=== PATIENT | male | born 1950 | race African-American/Black ===

== ENCOUNTER 2016-11-06 11:46 | Inpatient (IN) | payer OTHER ==
[~2016-11-06] VITALS: Ht 182.9 cm; Wt 97.0 kg
--- NOTE | ~2016-11-06 | OR ---
Unit #: [id number] #: [id number] Patient: KAYDEN ADAME [id number] [address] [address] [id number] MR#: [id number] NAME: KAYDEN ADAME ROOM: [facility] Date of Procedure: 11/06/2016 Admission Date: 11/06/2016 Surgeon: Eduard Velarde M.D. : 1950 Attending Physician: Harleen Winkler M.D. Primary Care Physician: Marce Primary Care Physician PROCEDURE OPERATIVE NOTE PROCEDURE Left intrajugular central line placement with ultrasound guidance. INDICATION FOR PROCEDURE Status post cardiac arrest. COMPLICATIONS None. PREMEDICATION None. DESCRIPTION OF THE PROCEDURE An informed consent was obtained from the patient's family after explaining the benefit and risk of this procedure. The patient was prepped and positioned in a proper way. Then, a clean body drape was applied. Then, a needle was inserted in the left IJ and blood flow was obtained. Then, a guidewire was inserted and the needle was removed. Then, a dilator was used to create a track for the catheter which was inserted over the guidewire and the guidewire was removed. The catheter was sutured in place and flushed appropriately. Stat chest x-ray confirmed placement with no immediate complication. Dictated by... Eduard Velarde M.D. EA/myranda TD: 11/07/2016 06:02 JOB #: [id number] Unit #: [id number] #: [id number] Patient: KAYDEN ADAME PROCEDURE OPERATIVE NOTE Page 1 of 1 X EDUARD ROPER MD PROCEDURE OPERATIVE NOTE
--- NOTE | ~2016-11-06 | CR72 ---
[facility] A Service of [facility] RADIOLOGY TEXT RESULTS PATIENT: KAYDEN ADAME LOCATION: CICCU3 CICCU3-13 : 50 UNIT #: [id number] AGE: [address]: Harleen Winkler MD SEX: M ORDER DR: [id number] [facility] [address] [facility]. [place], [place] [address] [id number] MR#: [id number] Acc #: [id number] NAME: KAYDEN ADAME : 1950 SEX: M STUDY DATE/TIME: 11/06/2016 12:26 UNIT: SLY ROOM: STUDY DESCRIPTION: CR Chest Single View Portable Attending Physician: Alvarez Sosa M.D. Ordering Physician: Alvarez Sosa M.D. Primary Care Physician: No Primary Care Physician MEDICAL IMAGING REPORT This report is preliminary unless electronic signature is present EXAM Chest, portable, 11/06/2016, 1226 hours. CLINICAL HISTORY Endotracheal tube placement. Patient found down today. Full cardiopulmonary arrest today. COMPARISON None. FINDINGS Supine portable chest film demonstrates an endotracheal tube with tip 5.8 cm above the brittny. Cardiac size is within normal limits. Aorta is mildly tortuous. Lung volumes are slightly low with perihilar and basilar vascular crowding. No definite edema, pneumonia, effusion, or pneumothorax. There is artifact from the backboard. IMPRESSION 1. Supine film demonstrates endotracheal tube with tip 5.8 cm above the brittny. 2. Perihilar and basilar vascular crowding without definite pneumonia, edema, effusion, or pneumothorax. Dictated by... Mariia Bauer M.D. THIS IS AN ELECTRONICALLY VERIFIED REPORT Mariia Bauer M.D. at 11/06/2016 5:41 PM NOHEMIM/terry TD: 11/06/2016 14:39 [facility] A Service [facility] RADIOLOGY TEXT RESULTS PATIENT: KAYDEN ADAME LOCATION: CICCUYuridia CICCU3-13 : 50 UNIT #: [id number] AGE: [address]: Harleen Winkler MD SEX: M ORDER DR: JOB #: [id number] MEDICAL IMAGING REPORT Page 1 of 1 COPY
--- NOTE | ~2016-11-06 | EKG ---
PATIENT: KAYDEN ADAME UNIT #: [id number] Ventricular Rate: 89 BPM Atrial Rate: 89 BPM P-R Interval: 204 ms QRS Duration: 152 ms Q-T Interval: 416 ms QTC Calculation(Bezet): 506 ms P Seneca: -83 degrees Calculated R Seneca: -69 degrees Calculated T Seneca: 22 degrees Diagnosis Line: Unusual P axis, possible ectopic atrial rhythm Diagnosis Line: with occasional Premature ventricular complexes Diagnosis Line: and Premature atrial complexes Diagnosis Line: Left axis deviation Diagnosis Line: Non-specific intra-ventricular conduction block Diagnosis Line: Inferior infarct , age undetermined Diagnosis Line: Anterolateral injury pattern Diagnosis Line: ACUTE NE / STEMI Diagnosis Line: Abnormal ECG Diagnosis Line: No previous ECGs available Diagnosis Line: Confirmed by CHRYSTAL AGUILAR MD ([id number]) on 11/08/2016 Diagnosis Line: 8:18:53 AM INTERPRETING MD: LAUREN TALAVERA
--- NOTE | ~2016-11-06 | CR72 ---
[facility] A Service of [facility] RADIOLOGY TEXT RESULTS PATIENT: KAYDEN ADAME LOCATION: [address]10 : [birth year] UNIT #: [id number] AGE: [address]: Nichelle Larson MD SEX: M ORDER DR: [id number] [facility] [address] [place], [place] [address] [id number] I MR#: [id number] #: [id number] NAME: KAYDEN ADAME. : 1950 SEX: M STUDY DATE/TIME: 11/07/2016 4:57 UNIT: [facility] ROOM: [facility] STUDY DESCRIPTION: CR Chest Single View Portable Attending Physician: Nichelle Larson M.D. Ordering Physician: Harleen Winkler M.D. Primary Care Physician: No Primary Care Physician MEDICAL IMAGING REPORT This report is preliminary unless electronic signature is present EXAM AP portable chest 11/07/2016 HISTORY Respiratory failure, shortness breath today, on ventilator. Symptoms began 11/06/2016. History of full cardiopulmonary arrest. COMPARISON AP portable chest 11/06/2016. FINDINGS Transcutaneous pacer pads are present. There are new bilateral lower lobe airspace disease changes thought to represent changes of pneumonia or potentially aspiration. Heart size is within normal limits. No pleural effusion or pneumothorax. IMPRESSION 1. New bilateral lower lobe airspace disease changes since 11/06/2016, worrisome for developing pneumonia or aspiration. 2. ET tube and left IJ central line appear stable. 3. No visible pneumothorax. Dictated by... Gayathri Owens M.D. THIS IS AN ELECTRONICALLY VERIFIED REPORT Gayathri Owens M.D. at 11/10/2016 8:42 AM [facility]/yara TD: 11/07/2016 08:05 JOB #: [id number] [facility] A Service of [facility] RADIOLOGY TEXT RESULTS PATIENT: KAYDEN ADAME LOCATION: [facility]-10 : 50 UNIT #: [id number] AGE: [address]: Nichelle Larson MD SEX: M ORDER DR: MEDICAL IMAGING REPORT Page 1 of 1 COPY
--- NOTE | ~2016-11-06 | CO ---
Unit #: [id number] #: [id number] Patient: KAYDEN ADAME [id number] [facility]. [place], [place] [address] [id number] I MR#: [id number] NAME: KAYDEN ADAME ROOM: [facility] Age: 66 Sex: M Admission Date: 11/06/2016 : 1950 Attending Physician: Nichelle Larson M.D. Primary Care Physician: Primary Care Physician No Consultation Date: 11/07/2016 CONSULTATION REPORT PRIMARY CARE PHYSICIAN None. REASON FOR CONSULTATION Possible hypoxic-anoxic encephalopathy, they need neurological evaluation. PATIENT IDENTIFICATION This is a 66-year-old -Icelandic male, who is evaluated in room ICU 10. SOURCE OF INFORMATION Medical records and my discussion with the patient's son. PROBLEM LIST 1. This gentleman had witnessed ventricular fibrillation arrest and he was shocked several times and had epi given several times, please refer to the details and evaluation done by other team members. 2. History of crack cocaine use, long-standing. 3. COPD. 4. Prostate cancer. 5. Hepatic disease. 6. Active smoker. HISTORY OF PRESENT ILLNESS This is a 66-year-old gentleman, was brought to the emergency room with witnessed ventricular fibrillation arrest. The patient apparently was with his friends. He was doing crack cocaine at that time. He apparently then was talking to his son and suddenly the phone cutoff. The son got a call from his father's fried that he was not breathing. He had a friend, who started CPR. EMS arrived, the patient with ventricular fibrillation. He was given amiodarone. He was given epinephrine. He was shocked several times. His EKG showed marked anterolateral ST elevation. His blood pressure initially was 48/30. He was started on Levophed. He has a little bit of sedation on board. His vital signs have improved, but he is not doing any purposeful activity. There was a concern on the CT that there may be some signs of loss of miller-white and cerebral edema, no seizures and no eye signs. No movement. Again, a little bit of sedation, but not much. His son wants to give him maximum time. PAST MEDICAL HISTORY As discussed above. Unit #: [id number] #: [id number] Patient: KAYDEN ADAME PAST SURGICAL HISTORY Nothing major. ALLERGIES Morphine. HOME MEDICATION Not known. FAMILY HISTORY Positive for heart disease in the patient's mother. SOCIAL HISTORY The patient apparently lives at home alone. He smokes and uses crack cocaine. REVIEW OF SYSTEMS Could not be obtained because of his present coma state. PHYSICAL EXAMINATION VITAL SIGNS: Temperature is 101.3, pulse 82, respirations 23, blood pressure 116/67, O2 saturations were 96%. His weight was 98.5 kg. NEUROLOGIC: The patient is essentially in coma. [place] Coma Scale essentially of 2T. Cranial nerve examination demonstrates no pupillary responses. No corneals. No doll's eye. No respond to visual threat. Eye movements are conjugate. No ptosis. No nystagmus. Sensation on the face and scalp could not be established. Facial muscle asymmetry could not be established. Hearing is questionable. Tongue was midline. I could not visualize any oropharynx or uvula. Head turning was not seen. Motor examination, he is flaccid with no responses of any kind. Sensory examination, he is flaccid with no responses of any kind. Could not get any reflexes. Toes are mute. Gait and coordination could not be established. DIAGNOSTIC STUDIES LABORATORY RESULTS: His latest ABG was 7.32 pH, pCO2 was 35, PO2 was 86.1. When he came in, his pH was 7.03, pCO2 was 73, PO2 of 57.8, I believe that was when he was already bagged. His random glucose was 197. His BUN was 16 and creatinine was 1.7, when I saw him it was 34 BUN and 4.2 creatinine. Calcium 6.4, it was 7.3 when he came in. AST went up from 123 to 509, ALT went up from 78 to 236. [place] 3038 [place] [address]. Troponin went up to 39.14 on the 3rd. Lactic acid of 4.0 initially. TSH 11.72. White count was 17.4. Urine drug screen was positive for cocaine. Urinalysis showed rbc's and 4+ blood. 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 When I saw him, it was close to 24 hours plus, but we will give him time and see how things go. This is a poor prognostic picture though I want to give him some time as the son wants to give him some time and he has some sedation, so based on how he Unit #: [id number] #: [id number] Patient: KAYDEN ADAME responds, we will decide which direction to go. He has 0/3 eye signs. He is on Levophed. He has [place] Coma Scale of 2T. If he does not improve in 72 hours, then definitely I am concerned that this is a very poor prognostic picture, and either he may progress to brain or persistent vegetative state as brain has not been established yet. He has mild sedation. The son wants to give him time and I acknowledge and I agree with him and I will follow up. Nothing suggesting seizures. No other issues. Further treatment and evaluation will be based on how things go. I will keep you informed. Call me for any other questions, issues, or concerns. Dictated by... Buck Erazo/aida TD: 11/08/2016 12:00 JOB #: [id number] CONSULTATION REPORT Page 1 of 1 X Татьяна Woods MD CONSULTATION REPORT
--- NOTE | ~2016-11-06 | CO ---
Unit #: [id number] #: [id number] Patient: KAYDEN ADAME [id number] [address] [place], [place] [address] [id number] I MR#: [id number] NAME: KAYDEN ADAME ROOM: CIC2 Age: 66 Sex: M Admission Date: 11/06/2016 : 1950 Attending Physician: Harleen Winkler M.D. Primary Care Physician: No Primary Care Physician Consultation Date: 11/06/2016 CONSULTATION REPORT REASON FOR CONSULTATION ST elevation myocardial infarction. HISTORY OF PRESENT ILLNESS This a 66-year-old -Samoan male who was brought to the emergency room after witnessed ventricular fibrillation arrest. He is unable to provide a history because he is currently intubated. With speaking with the son over the phone he says that the patient was with his friends this a.m. He thinks that he was doing crack cocaine at the time. He has a longstanding history of crack cocaine use in the past. He quit for several years but restarted six years ago. He was talking to his father over the phone this morning and it suddenly cutoff. He got a call from his father's friends that said that he was not breathing. His friends were instructed to do CPR. When EMS arrived the patient was in ventricular fibrillation. He was defibrillated six times. He was treated with epinephrine x5 doses and amiodarone 400 mg intravenously. His presenting electrocardiogram showed marked anterolateral ST elevation with reciprocal changes in the inferior leads that was indicative of an acute ST elevation myocardial infarction. The patient was also hypotensive. His blood pressure was 48/30 mmHg. He has been started on Levophed. According to the son, the patient has had no prior cardiac history or testing to his knowledge. He has known prostate cancer and was unaware of any treatment. He has COPD and has smoked in the past. His troponin initially was negative at 0.05 but peaked at 0.33. There is elevation of his LFTs. PAST MEDICAL HISTORY 1. COPD. 2. Prostate cancer. 3. Cocaine abuse. 4. Hepatic disease. 5. Active smoker. PAST SURGICAL HISTORY No known surgical history at this time. SOCIAL HISTORY The patient lives at home alone. According to the son he smokes and uses crack cocaine. FAMILY HISTORY Positive for heart disease in the patient's mother. Unit #: [id number] #: [id number] Patient: KAYDEN ADAME ALLERGIES Morphine. HOME MEDICATIONS Not currently reconciled. REVIEW OF SYSTEMS Unable to obtain because the patient is currently intubated. PHYSICAL EXAMINATION VITAL SIGNS: Blood pressure 109/72, heart rate 98, temperature 96.8. GENERAL: This is a well developed 66-year-old, tall, -Samoan male who is currently intubated. NEUROLOGIC: Pupils are 3+ and fixed. He has no spontaneous movement. NECK: Trachea is midline. No thyromegaly or lymphadenopathy. No jugular venous distention. HEART: S1, S2. Heart sounds are normal. No murmurs, rubs, or clicks. Regular rate and rhythm. LUNGS: Diminished breath sounds without rales, rhonchi or wheezes. ABDOMEN: Slightly distended with absent bowel sounds. EXTREMITIES: With weak pedal pulses but no leg edema. SKIN: Cool and dry. DIAGNOSTIC STUDIES LABORATORY STUDIES: Glucose 197, BUN 16, creatinine 1.7, sodium 141, potassium 3.4, calcium 7.3, AST 123, ALT 78. White count 7.3, hemoglobin 10.7, hematocrit 33.7, platelet count 144. CK total 437. Troponin less than 0.05 to 0.33. IMAGING STUDIES: Chest x-ray pending. CARDIOVASCULAR STUDIES: Electrocardiogram shows anterolateral ST elevation myocardial infarction with inferior wall T wave depression. IMPRESSION 1. Acute hypoxic respiratory failure. 2. Acute anterolateral ST elevation myocardial infarction. 3. Chronic obstructive pulmonary disease. 4. Cocaine abuse. 5. Acute kidney injury. 6. History of prostate cancer. 7. Hematuria. 8. Elevated LFT possibly secondary to shock liver. 9. Resuscitated cardiopulmonary arrest. 10. Hypoxic encephalopathy. PLAN 1. Cardiology was asked to see the patient because of ST elevation in the anterior and lateral leads. ST elevation may be secondary to LAD occlusion versus cocaine use. 2. I spoke with the son by phone about myocardial infarction and need for cardiac catheterization. He is agreeable. 3. Also informed the son that the patient is critically ill and may not survive. He wants the patient to remain a full code and everything to be done. 4. Will ask Dr. Velarde to see the patient for critical care management and possible hypothermia. 5. Continue vasoactive drips for blood pressure support. Unit #: [id number] #: [id number] Patient: KAYDEN ADAME 6. Restart on aspirin. 7. Lipid profile will be obtained. Will start lipid management when able. 8. Supplement potassium. 9. Urine drug screen will be done. 10. Repeat cardiac enzymes and troponin. 11. Further recommendations to follow after the cardiac catheterization. Thank you for allowing us to assist with this patient's care. Dictated by... Chago Morelso/aleta TD: 11/07/2016 06:02 JOB #: [id number] CC: [facility] CONSULTATION REPORT Page 1 of 1 X Francisco Mosqueda APRN X CONSULTATION REPORT
--- NOTE | ~2016-11-06 | A ---
[facility] Nutrition Therapy DATE: 11/07/16 Patient: KAYDEN ADAME Physician: EVENS Address: [address] [place] [address] Room/Bed: [address], Zip: [place] [address] Admit Date: 11/06/16 Date of : [birth year] Height: 6 0 Weight: 217 98.5 NUTRITIONAL ASSESSMENT: REASON: NPO IN ICU ASSESSMENT PT IS 66 Y.O. MALE ADMITTED FOR FULL ARREST, RESPIRATORY FAILURE, ASPIRATION PNA PMH: COPD, PROSTATE CANCER, COCAINE ABUSE, HEPATIC DISEASE, ETOH ABUSE, SMOKER Anthropometrics: 6'3" (PER FAMILY), WT: 180# (82 KG), BMI: 22.5 Labs: BUN: 26, CREAT: 3.0, CA+: 6.9, ALB: 3.1, AST: 509, ALT: 236, PHOS: 5.0, GFR: 24.0 Meds: FENTANYL, VERSED, LEVOPHED, DOPAMINE, ZOFRAN, NACL, PROTONIX I/O & Bowel function: 3100/100 Skin Integrity: NO KNOWN SKIN ISSUES EDEMA: BUE TRACE EDEMA Estimated Nutrition Needs: [id number] KCAL (25-30 KCAL/KG BW) 98-123 G PRO (1.2-1.5 G PRO/KG BW) FLUIDS CONSISTENT W/KCAL NEEDS OR MANAGE PER MD Assessment: CHART REVIEWED AND EVENTS NOTED. PT SEEN FOR NPO IN ICU ASSESSMENT. PT CURRENTLY INTUBATED AND SEDATED 2' DX ABOVE. PER RN AND CHART, POOR PROGNOSIS NOTED, ?COMFORT MEASURES VS. TRACH/PEG. RD SPOKE TO FAMILY AT BEDSIDE. FAMILY REPORTS PT TO HAVE GOOD PO INTAKE AND APPETITE PRIOR TO ADMIT, NOTING WEIGHT LOSS BUT UNABLE TO IDENTIFY AMOUNT AND TIME FRAME. NO CURRENT PLANS IN PLACE FOR ALTERNATIVE NUTRITION SUPPORT AT THIS TIME. RD TO FOLLOW. FAMILY REPORTED NO DIET QUESTIONS AT THIS TIME. RD TO FOLLOW. SEE RECOMMENDATIONS BELOW. Dx: INADEQUATE PROTEIN-ENERGY INTAKE R/T CURRENT DIAGNOSIS, CURRENT CLINICAL CONDITION AEB PT ON VENT, NPO. Intervention: 1. NPO Monitoring, Evaluation and Goals: 1. WEIGHTS; PROMOTE HEALTHY WEIGHT MAINTENANCE; PREVENT ANY WEIGHT LOSS 2. LABS; WNL: BUN, CREAT, PHOS 3. ENTERAL NUTRITION; INITIATE EN AND PROVIDE >80% TOTAL VOLUME X 24 HOURS MONITOR: [facility] Nutrition Therapy DATE: 11/07/16 Patient: KAYDEN ADAME Physician: EVENS Address: [address] [place] [address] Room/Bed: [address], Zip: [place] [phone] Admit Date: 11/06/16 Date of : [birth year] Height: 6 0 Weight: 217 98.5 -WEIGHTS -LABS -NUTRITION SUPPORT? -EXTUBATION? Recommendations: 1. ONCE MEDICALLY FEASIBLE AND PT EXTUBATED, ADVANCE DIET PER REAMING MACHINE OPERATOR EVAL + DIET 2. IF PT REMAINS INTUBATED FOR >24 HOURS, RECOMMEND TO BEGIN ALTERNATIVE NUTRITION SUPPORT OF JEVITY 1.5 @ 20 ML/HR, ADVANCE 10 ML q 6 HOURS TO GOAL RATE OF 65 ML/HR -PROVIDES 2340 KCAL, 99 G PRO, 1186 ML FREE H20 ADD FREE H20 FLUSHES OF 180 ML q 4 HOURS TO MEET PT'S CURRENT ESTIMATED FLUID NEEDS OR MANAGE PER MD 3. MONITOR LYTES PRN (PHOS ELEVATED) RD WILL F/U PER PROTOCOL PT IS SEVERELY COMPROMISED Respectfully, NELA WEINER MS, RD, LD Food and Nutritional Services [facility] cc: client file
--- NOTE | ~2016-11-06 | CO ---
Unit #: [id number] #: [id number] Patient: KAYDEN ADAME [id number] [address] [address] [id number] I MR#: [id number] NAME: KAYDEN ADAME ROOM: CIC2 Age: 66 Sex: M Admission Date: 11/06/2016 : 1950 Attending Physician: Harleen Winkler M.D. Primary Care Physician: No Primary Care Physician Consultation Date: 11/06/2016 CONSULTATION REPORT REASON FOR CONSULT ICU management. CHIEF COMPLAINT Cardiac arrest. HISTORY OF PRESENT ILLNESS This is a 66-year-old, -Swazi gentleman with a past medical history significant for polysubstance abuse, COPD, and prostate cancer who presented to the emergency room with a cardiac arrest. Apparently, patient was with his friends when he suddenly stopped breathing. EMS was called who suggested to start CPR and that was done for about 10 minutes before EMS arrived. EMS continued CPR for about 30-40 minutes. Patient had a V-fib arrest and, also, he had a PEA on his rhythm. Upon presentation to the emergency room, patient had a ST elevation OH so he was rushed to the asset availability leader where he had clean coronary and no stent was placed. Patient was screened for hyperthermia protocol; however, his stat CT head showed a global severe anoxic brain injury. I had a lengthy discussion with (1) and his sister about his prognosis and we elected not to proceed with any hypothermia at this point. Patient likely to be comfort care soon. PAST MEDICAL HISTORY 1. COPD. 2. Prostate cancer. 3. Polysubstance abuse. PAST SURGICAL HISTORY None. SOCIAL HISTORY Patient is a smoker and he drinks alcohol occasionally. He is positive for cocaine abuse. FAMILY HISTORY Unobtainable. ALLERGIES Morphine. HOME MEDICATIONS Unknown. Unit #: [id number] #: [id number] Patient: KAYDEN ADAME REVIEW OF SYSTEMS Unable to obtain from the patient due to his condition. DIAGNOSTIC STUDIES LABORATORY: Creatinine 1.7, potassium 3.7, albumin 2.8. CK 3038. CBC 7.3 and hemoglobin 10.7. IMAGING: CT head is consistent with anoxic brain injury. ASSESSMENT 1. Acute hypoxic respiratory failure. 2. Status post ventricular fibrillation cardiac arrest. 3. Severe anoxic brain injury. 4. Rhabdomyolysis. 5. Acute (2) . 6. ST elevation myocardial infarction likely due to cocaine abuse. 7. Cocaine overdose. 8. Chronic obstructive pulmonary disease. PLAN 1. Patient is currently on the vent, which we will continue pending final family decision. 2. Patient status post emergent left heart cath with clear coronary. 3. Patient is not a candidate for hypothermia due to severe anoxic brain injury on CT head and instability including needing or escalating dose of pressor. 4. Continue patient on IV hydration and if antibiotics. 5. Lovenox and GI prophylaxis. Critical care time spent on this patient was 45 minutes including face to face time with patient and his family. Dictated by... Eduard Velarde M.D. EA/johan TD: 11/07/2016 05:42 JOB #: [id number] CONSULTATION REPORT Page 1 of 1 X EDUARD ROPER MD X CONSULTATION REPORT
--- NOTE | ~2016-11-06 | CR72 ---
[facility] A Service of [facility] RADIOLOGY TEXT RESULTS PATIENT: KAYDEN ADAME LOCATION: CICCU2 CICCU2-10 : 50 UNIT #: [id number] AGE: [address]: Nichelle Larson MD SEX: M ORDER DR: [id number] [facility] [address]. [place], [place] [address] [id number] I MR#: [id number] #: [id number] NAME: KAYDEN ADAME. : 1950 SEX: M STUDY DATE/TIME: 11/06/2016 17:25 UNIT: [facility] ROOM: [facility] STUDY DESCRIPTION: CR Chest Single View Portable Attending Physician: Harleen Winkler M.D. Ordering Physician: Harleen Winkler M.D. MEDICAL IMAGING REPORT This report is preliminary unless electronic signature is present EXAM Chest x-ray, single view portable HISTORY Central line placement today. Patient is intubated for respiratory failure. TECHNIQUE Two frontal views of the chest obtained 17:25 submitted for review. COMPARISON STUDIES Earlier study from 11/06/2016 at 12:26. FINDINGS There is an endotracheal tube in satisfactory position. There is a new left IJ approach catheter terminating mid-SVC level and there is no evidence for pneumothorax. The cardiac silhouette size is borderline. Mildly increased parenchymal markings again seen in the right lung, fairly diffusely. This is better than it was on the earlier film but please correlate for any clinical concern for aspiration or possibly early pneumonia. There is no pneumothorax or pleural effusion suspected. IMPRESSION 1. Left side IJ approach central venous catheter terminates in mid-SVC level. No pneumothorax. Endotracheal tube is satisfactory. 2. Some improvement in lung volumes and aeration since the earlier film. Patchy airspace disease remains in the right lung. Please correlate for clinical concern for aspiration or early pneumonia. This is nonspecific. Dictated by... [facility] A Service [facility] RADIOLOGY TEXT RESULTS PATIENT: KAYDEN ADAME LOCATION: CICCU2 CICCU2-10 : 50 UNIT #: [id number] AGE: [address]: Nichelle Larson MD SEX: M ORDER DR: Fabiola Solomon M.D. THIS IS AN ELECTRONICALLY VERIFIED REPORT Fabiola Solomon M.D. at 11/07/2016 7:09 AM SAC/pcl TD: 11/06/2016 22:37 JOB #: [id number] MEDICAL IMAGING REPORT Page 1 of 1 COPY
--- NOTE | ~2016-11-06 | EKG ---
PATIENT: KAYDEN ADAME UNIT #: [id number] Ventricular Rate: 66 BPM Atrial Rate: 66 BPM QRS Duration: 150 ms Q-T Interval: 466 ms QTC Calculation(Bezet): 488 ms Calculated R [place]: -70 degrees Calculated T [place]: -26 degrees Diagnosis Line: Junctional rhythm Diagnosis Line: Right bundle branch block Diagnosis Line: Left anterior fascicular block Diagnosis Line: Bifascicular block Diagnosis Line: Cannot rule out Inferior infarct (masked by Diagnosis Line: fascicular block?) , age undetermined Diagnosis Line: Anterolateral injury pattern Diagnosis Line: ACUTE VT / STEMI Diagnosis Line: Abnormal ECG Diagnosis Line: When compared with ECG of 06-NOV-2016 12:01, Diagnosis Line: (unconfirmed) Diagnosis Line: Wide QRS rhythm has replaced Ectopic atrial rhythm Diagnosis Line: Confirmed by CHRYSTAL AGUILAR MD ([id number]) on 11/08/2016 Diagnosis Line: 8:20:28 AM INTERPRETING MD: LAUREN TALAVERA
--- NOTE | ~2016-11-06 | US77 ---
[facility] A Service of [facility] RADIOLOGY TEXT RESULTS PATIENT: KAYDEN ADAME LOCATION: [address] : 50 UNIT #: [id number] AGE: [address]: Nichelle Larson MD SEX: M ORDER DR: [id number] [place] [id number] [facility]. [place], [place] [address] [id number] I MR#: [id number] #: [id number] NAME: KAYDEN ADAME : 1950 SEX: M STUDY DATE/TIME: 11/07/2016 10:48 UNIT: CICCU2 ROOM: [facility] STUDY DESCRIPTION: US Kidney Bilateral Complete Attending Physician: Nichelle Larson M.D. Ordering Physician: Srikanth Covarrubias M.D. Primary Care Physician: No Primary Care Physician MEDICAL IMAGING REPORT This report is preliminary unless electronic signature is present EXAM Renal ultrasound bilaterally, 07/21. INDICATION Acute renal failure. GFR 24, BUN 26, creatinine 3.0. Ventilator patient. TECHNIQUE Sonographic imaging of the kidneys performed bilaterally. No comparisons. FINDINGS The bladder was decompressed by a Haney catheter and not well visualized or assessed. Overall image quality is degraded by the patient's functional status and a limited sonographic window. These were the best images possible. The left kidney measures 10.4 x 4.6 x 5.1 cm. No hydronephrosis or shadowing stone. The right kidney measures 10.5 x 4.6 x 4.3 cm. There is a prominent renal pelvis on the right which is nonspecific. There is, however, no hydronephrosis. No shadowing stone. Both kidneys demonstrate increased echogenicity suggestive of chronic renal parenchymal disease although nonspecific. IMPRESSION 1. No hydronephrosis or shadowing stone on either side. 2. Increased echogenicity of both kidneys which is nonspecific but may reflect chronic renal parenchymal disease. 3. Prominent renal pelvis on the right. No hydronephrosis or other secondary sign of obstruction. 4. Bladder decompressed by a Haney catheter. [facility] A Service of [facility] RADIOLOGY TEXT RESULTS PATIENT: KAYDEN ADAME LOCATION: [address] : [birth year] UNIT #: [id number] AGE: [address]: Nichelle Larson MD SEX: M ORDER DR: Dictated by... Lion Thompson M.D. THIS IS AN ELECTRONICALLY VERIFIED REPORT Lion Thompson M.D. at 11/07/2016 5:15 PM СЕРГЕЙ/terry TD: 11/07/2016 12:45 JOB #: [id number] MEDICAL IMAGING REPORT Page 1 of 1 COPY
--- NOTE | ~2016-11-06 | CO ---
Unit #: [id number] #: [id number] Patient: KAYDEN HERNANDEZ [id number] [address] [place], [place] [address] [id number] I MR#: [id number] NAME: KAYDEN HERNANDEZ ROOM: [facility] Age: 66 Sex: M Admission Date: 11/06/2016 : 1950 Attending Physician: Nichelle Larson M.D. Primary Care Physician: Marce Primary Care Physician Consultation Date: 11/07/2016 CONSULTATION REPORT REASON FOR CONSULT Renal failure. Thank you for asking me to see this patient in consultation. HISTORY OF PRESENT ILLNESS Mr. Kayden Hernandez is a 66-year-old gentleman who presented to the hospital in V-tach, full arrest after apparently doing crack cocaine, subsequently had increased troponin and CPK. He underwent a heart cath yesterday which was normal. We were asked to see the patient secondary to worsening BUN and creatinine. Upon admission, he had a creatinine of 1.7. It is up to 3.0 today with decreased urine output. The patient currently is unresponsive on the vent. The rest of his records are all from the chart that I have, not from him or family. I was unable to reach family at this time. PAST MEDICAL HISTORY He apparently has a history of prostate CA, history of COPD, history of drug abuse. SOCIAL HISTORY Positive smoker, positive crack cocaine, lives alone, occasional alcohol. FAMILY HISTORY Unable to obtain. ALLERGIES Morphine. MEDICATIONS 1. Amiodarone. 2. Aspirin. 3. Lovenox. 4. Protonix. 5. IV fluids. PHYSICAL EXAMINATION VITAL SIGNS: T-max 100.4. Pulse 62 to 101. Blood pressure 69 to 158/30 to 80. He has had 3.1 liters in and 100 out. HEENT: His pupils are dilated and nonreactive. He is orally intubated. NECK: Supple. CARDIAC: He is tachycardiac without a rub. LUNGS: Bilateral rhonchi. ABDOMEN: Bowel sounds positive, nontender, soft. Unit #: [id number] #: [id number] Patient: KAYDEN HERNANDEZ EXTREMITIES: He has no lower extremity swelling. NEUROLOGIC: Decreased response. GENITOURINARY: Haney catheter is in place. SKIN: No rashes. DIAGNOSTIC STUDIES LABORATORY: ABG showed a pH of 7.332, pCO2 35, pO2 86 on 40%. In 2004, he had a creatinine of 1.1. Yesterday, it was 1.7, up to 3.0 today with a sodium of 139, potassium 4.4, chloride 106, bicarb 21, BUN 26, again creatinine 3.0, calcium 6.9, phosphorous 5, albumin 3.1. CPK is up to 11,166. Lactic acid was 4. Troponin 39.14. TSH 11.72. Increased liver function tests as well. INR is 1.2. Hemoglobin is 12.2, white count 17,400, platelets 198,000. His UA shows specific gravity of 1.01, 3+ protein, 1+ ketones, positive RBCs, positive WBCs, 1+ bacteria. ASSESSMENT AND PLAN 1. Acute kidney injury. A gentleman with increased BUN and creatinine, decreased output, most likely related to ATN from hypotension, rhabdomyolysis post CODE, etc. I agree with placing (1) on a bicarb drip. We will also give him 4 mg of Bumex IV times one to see if we can try to increase his urine output. Certainly, if his renal function does not improve or output does not improve, potassium comes up, acidosis, etc, we will need to consider hemodialysis and/or CRRT. 2. Possible UTI. Send urine cultures. 3. Status post CODE. Crack cocaine. Dictated by... Marek Hayes M.D. KIMBERLI/uriel TD: 11/10/2016 11:28 JOB #: [id number] CONSULTATION REPORT Page 1 of 1 X Rolly Hayes MD X CONSULTATION REPORT
--- NOTE | ~2016-11-06 | CR72 ---
[facility] A Service of [facility] RADIOLOGY TEXT RESULTS PATIENT: KAYDEN ADAME LOCATION: [place] [address]-10 : 50 UNIT #: [id number] AGE: [address]: Nichelle Larson MD SEX: M ORDER DR: [id number] [facility] [address]. [place], [place] [address] [id number] I MR#: [id number] #: [id number] NAME: KAYDEN ADAME : 1950 SEX: M STUDY DATE/TIME: 11/08/2016 16:38 UNIT: [facility] ROOM: [facility] STUDY DESCRIPTION: CR Chest Single View Portable Attending Physician: Nichelle Larson M.D. Ordering Physician: Nichelle Larson M.D. Primary Care Physician: No Primary Care Physician MEDICAL IMAGING REPORT This report is preliminary unless electronic signature is present EXAM Portable chest. HISTORY Line placement. Shortness of air today. FINDINGS Left subclavian Shiley catheter tip is in the mid SVC 3 cm above the junction SVC and right atrium. No pneumothorax. Remainder of the support devices are stable compared to yesterday. Increased or new consolidation or atelectasis in the left base and new patchy infiltrate or atelectasis in the right base and small bilateral pleural effusions. The mid and upper lungs are clear. Dictated by... Ori Barboza M.D. THIS IS AN ELECTRONICALLY VERIFIED REPORT Ori Barboza M.D. at 11/08/2016 8:43 PM DIANA/anthony TD: 11/08/2016 19:55 JOB #: [id number] MEDICAL IMAGING REPORT Page 1 of 1 COPY
--- NOTE | ~2016-11-06 | EKG ---
PATIENT: KAYDEN ADAME UNIT #: [id number] Ventricular Rate: 72 BPM Atrial Rate: 72 BPM P-R Interval: 170 ms QRS Duration: 124 ms Q-T Interval: 522 ms QTC Calculation(Bezet): 571 ms Calculated R [place]: -75 degrees Calculated T [place]: 15 degrees Diagnosis Line: Sinus rhythm with occasional Premature ventricular Diagnosis Line: complexes and Premature atrial complexes Diagnosis Line: Left axis deviation Diagnosis Line: Right bundle branch block Diagnosis Line: Inferior infarct , age undetermined Diagnosis Line: T wave abnormality, consider lateral ischemia Diagnosis Line: Abnormal ECG Diagnosis Line: When compared with ECG of 06-NOV-2016 12:23, Diagnosis Line: (unconfirmed) Diagnosis Line: Sinus rhythm has replaced Wide QRS rhythm Diagnosis Line: Confirmed by CHRYSTAL AGUILAR MD ([id number]) on 11/08/2016 Diagnosis Line: 8:24:18 AM INTERPRETING MD: LUAREN TALAVERA
--- NOTE | ~2016-11-06 | DS ---
Unit #: [id number] #: [id number] Patient: KAYDEN ADAME [id number] [address] [address] [id number] I MR#: [id number] NAME: KAYDEN ADAME ROOM: [facility] Age: 66 Sex: M Admission Date: 11/06/2016 : 1950 Discharge Date: 11/09/2016 Attending Physician: Nichelle Larson M.D. Primary Care Physician: No Primary Care Physician DISCHARGE SUMMARY SUMMARY DISCHARGE DIAGNOSES 1. Full resuscitated arrest with witnessed ventricular fibrillation. Patient on 11/09/2016 at 6:[address] elevation myocardial infarction. 3. Acute hypercapnic/hypoxic respiratory failure. 4. Acute kidney injury. 5. Urinary tract infection. 6. History of cocaine abuse. 7. Smoking. 8. Chronic obstructive pulmonary disease. 9. Anemia. 10. Cardiogenic shock. 11. Sepsis. 12. Bilateral air space disease with pneumonia. 13. Hyperphosphatemia. 14. Hypokalemia. 15. Severe protein malnutrition. 16. Shock liver. 17. Lactic acidosis. 18. Abnormal TSH with elevated TSH levels. 19. History of prostate cancer. 20. Possible liver disease. 21. Hematuria. 22. Likely hypoxic verses anoxic encephalopathy. CONSULTANTS 1. Dr. Anupam Velarde 2. Dr. Sanchez. 3. Dr. Woods. 4. Dr. Hayes. PROCEDURES The patient had left subclavian hemodialysis catheter placement and also left internal jugular central line placement with ultrasound guided. LAB DATA 1. Chest x-ray shows bilateral infiltrates. 2. Ultrasound of the kidneys, no hydronephrosis, increased echo density present. 3. CT of the head shows concerning for a cerebral edema, likely from hypoxic insult, abnormal loss of miller white junction and abnormal loss of sulci for age group present. Possible global hypoxic Unit #: [id number] #: [id number] Patient: KAYDEN ADAME ischemic insult present. 4. ABG - pH 7.36, CO2 57, (1) 172. 5. Sodium 135, potassium 4.0, creatinine 4.9, BUN 33, calcium 6.5, AST 480, ALT 384, albumin 2.1, CK 6,356, magnesium 1.6. 6. Troponins elevated at 52.47. 7. WBC 10.6, hemoglobin 10.2, platelets 97. 8. Sputum culture showing normal respiratory diana. 9. Urine culture negative. 10. Blood cultures negative. HOSPITAL COURSE This is a 66-year-old admitted with full cardiac arrest resuscitated. He had a history of prostate cancer and cocaine abuse and likely liver disease. On admission the patient was unresponsive, status post cardiac arrest. Patient was kept in ICU with intubation and pulmonary, Dr. Velarde, was closely following during the hospital course. ST [facility] elevation: Patient seen by cardiology. Patient was started on Cardizem, amiodarone, and patient is seen by cardiology. Possible sepsis with urinary tract infection and aspiration pneumonia: Patient was started on broad spectrum antibiotics. Cardiogenic shock: Patient received Levophed. Acute kidney injury with shock liver and severe hypertension: patient was given IV fluids, Levophed and bicarbonate drip. 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 Think patient has very poor prognosis. Because of above comorbidities and critically ill situation, myself and other consultants talked to the family, including the son. Son agreed for DNR and later terminal extubated, very poor prognosis, and DNR. Terminally extubated after family wishes. Patient on 11/09/2016 at 16:35 p.m. Dictated by... Buck Chen/aleta TD: 11/11/2016 12:54 JOB #: [id number] DISCHARGE SUMMARY Page 1 of 1 X Nichelle Larson MD X DISCHARGE SUMMARY
--- NOTE | ~2016-11-06 | HP ---
Unit #: [id number] #: [id number] Patient: KAYDEN ADAME [id number] [facility] [address] [facility]. [place], [place] [address] [id number] I MR#: [id number] NAME: KAYDEN ADAME ROOM: [facility] Age: 66 Sex: M Admission Date: 11/06/2016 : 1950 Attending Physician: Harleen Winkler M.D. Primary Care Physician: No Primary Care Physician HISTORY AND PHYSICAL CHIEF COMPLAINT Full arrest. HISTORY OF PRESENT ILLNESS The patient is a 66-year-old male with a past medical history of COPD, prostate cancer, and cocaine abuse, who presented to the emergency department for evaluation of the above. History is obtained from chart review and discussion with ER staff due to the patient's mental status and currently being intubated. Apparently, the patient was at home on the phone with a family member and the call abruptly ended. A few minutes later, friends called the family member back and stated that the patient was unresponsive. EMS was called. Bystander CPR was initiated for approximately 10 minutes. EMS arrived at 1121 hours. They then arrived at the emergency department at [facility] at 1143 hours. I am told that he was initially in ventricular fibrillation but did have PEA at some point as well. He received a total of six defibrillations and five rounds of epinephrine. He was intubated in the emergency department. He received 450 mg of amiodarone. EKG showed ST elevation in lateral leads. Initial troponin was 0.33. He was taken emergently to the labor relations worker. Cardiac catheterization showed angiographically normal coronary arteries. Other notable findings include chest x-ray without definitive pneumonia, potassium of 3.4, and creatinine 1.7. He received two liters of normal saline. He is currently on dopamine and Levophed drips. He is also on a bicarbonate drip at 30 mL/hour. He is being admitted to [facility] for evaluation and further treatment. Also of note, the patient has a history of cocaine use as stated above. Family is concerned that he may have been using cocaine today. PAST MEDICAL HISTORY 1. Chronic obstructive pulmonary disease. 2. Prostate cancer. 3. Possible "liver problem." PAST SURGICAL HISTORY None. SOCIAL HISTORY The patient has a history of cocaine use. He is a smoker. He reportedly Unit #: [id number] #: [id number] Patient: KAYDEN ADAME drinks alcohol occasionally. FAMILY HISTORY Unobtainable. ALLERGIES Morphine. HOME MEDICATIONS Unknown. REVIEW OF SYSTEMS A complete review of systems is unobtainable from the patient due to altered mental status. The patient has not had any neurologic activity aside from involuntary movements since being in the emergency department. DIAGNOSTIC STUDIES LABORATORY: Comprehensive metabolic panel notable for potassium of 3.4, glucose 197, creatinine 1.7, calcium 7.3 but corrects to 8.3 when albumin of 2.8 is accounted for. AST and ALT are 123 and 78 respectively. CPK is 437. Troponin is 0.33. Complete blood count notable for hemoglobin and hematocrit of 10.7 and 33.7 respectively. INR is 1.2. Arterial blood gas shows a pH of 7.036, pCO2 of 73.1, pO2 of 57.8 on assist control with a FIO2 of 100%. Initial troponin less than 0.05, repeat was 0.33. PHYSICAL EXAMINATION VITAL SIGNS: Temperature is not recorded. Pulse 101, respirations 12, blood pressure 129/106, oxygen saturation 96%. GENERAL: The patient is an -[place]cu[place] male who is completely unresponsive. HEENT: The pupils are fixed. He is intubated. NECK: Supple. Trachea is midline. CARDIOVASCULAR: Regular rate and rhythm. LUNGS: Relatively clear to auscultation bilaterally with no increased work of breathing. ABDOMEN: Soft with bowel sounds present in all four quadrants. EXTREMITIES: There is no pedal edema. NEUROLOGIC: The patient is completely unresponsive. He is not requiring any sedation. SKIN: Skin of examined areas is warm and dry. PSYCHIATRIC: Unable to assess. ASSESSMENT The patient is a 66-year-old male with: 1. Resuscitated arrest with witnessed ventricular fibrillation. 2. ST elevation myocardial infarction: The patient is status post cardiac catheterization that showed angiographically normal coronary arteries. 3. Acute respiratory failure, currently requiring intubation. 4. Hypokalemia that has been replaced by cardiology. 5. Acute kidney injury: The patient's creatinine was 1.1 on February 15, 2005. It is 1.7 today. 6. Anemia: The patient's hemoglobin was 12.1 on February 15, 2005. It is 10.7 today. 7. Chronic obstructive pulmonary disease. 8. Prostate cancer. 9. History of cocaine abuse. 10. Tobacco abuse. Unit #: [id number] #: [id number] Patient: KAYDEN ADAME PLAN 1. Admit to intensive care unit. 2. NPO. 3. Consult Dr. Anupam Velarde regarding acute respiratory failure. I am waiting for return phone call from him. 4. Consult Dr. Sanchez regarding ST elevation myocardial infarction. He has already seen the patient and done cardiac catheterization. 5. Check magnesium level. 6. Serial cardiac enzymes. 7. Neuro checks. 8. Levophed and dopamine drips have already been written for. Will start the patient on amiodarone drip as per my discussion with cardiology. 9. Hypothermia protocol if okay with Dr. Velarde. 10. Check CT of the head. 11. Neuro checks. 12. Check urinalysis. 13. Strict ins and outs. 14. Urine tox screen. 15. Protonix for gastrointestinal prophylaxis. 16. Sequential compression devices for deep venous thrombosis prophylaxis. 17. Additional workup and consultants based on above. Thirty three minutes critical care time spent on the care of this patient (2:50 to 3:23 p.m.). Sigrid TD: 11/06/2016 16:04 JOB #: [id number] Dictated by Harleen Winkler M.D. Kaci TD: 11/06/2016 15:41 JOB #: [id number] HISTORY AND PHYSICAL Page 1 of 1 X Harleen Winkler MD X HISTORY AND PHYSICAL
--- NOTE | ~2016-11-06 | EKG ---
PATIENT: KAYDEN ADAME UNIT #: [id number] Ventricular Rate: 76 BPM Atrial Rate: 76 BPM P-R Interval: 152 ms QRS Duration: 112 ms Q-T Interval: 512 ms QTC Calculation(Bezet): 576 ms Calculated R [place]: -64 degrees Calculated T [place]: -59 degrees Diagnosis Line: Normal sinus rhythm Diagnosis Line: Left axis deviation Diagnosis Line: Incomplete right bundle branch block Diagnosis Line: Inferior infarct (cited on or before 06-NOV-2016) Diagnosis Line: Anterior infarct , age undetermined Diagnosis Line: T wave abnormality, consider lateral ischemia Diagnosis Line: Prolonged QT Diagnosis Line: Abnormal ECG Diagnosis Line: When compared with ECG of 06-NOV-2016 18:28, Diagnosis Line: Significant changes have occurred Diagnosis Line: Confirmed by CHRYSTAL AGUILAR MD ([id number]) on 11/11/2016 Diagnosis Line: 6:54:55 AM INTERPRETING MD: LAUREN TALAVERA
--- NOTE | ~2016-11-06 | OR ---
Unit #: [id number] #: [id number] Patient: KAYDEN ADAME [id number] [address] [address] [id number] MR#: [id number] NAME: KAYDEN ADAME ROOM: [facility] Date of Procedure: 11/08/2016 Admission Date: 11/06/2016 Surgeon: Eduard Velarde M.D. : 1950 Attending Physician: Nichelle Larson M.D. Primary Care Physician: Marce Primary Care Physician PROCEDURE OPERATIVE NOTE PROCEDURE Left subclavian hemodialysis catheter placement. PREOPERATIVE DIAGNOSIS Status post cardiac arrest with progressive renal failure. INDICATION FOR PROCEDURE Acute renal failure. COMPLICATION None. PREMEDICATION None. DESCRIPTION OF THE PROCEDURE An informed consent was obtained from the patient's son after explaining the benefit and risk of this procedure. Patient was prepped and positioned in a proper way, then his left shoulder was cleaned with chlorhexidine and then a sterile body drape was applied. Then, a needle was inserted in the left subclavian area until blood flow was obtained. Then, a guidewire was inserted and the needle was removed. Then, a dilator was used and eventually the catheter was inserted over the guidewire and the guidewire was removed. The catheter was flushed and sutured appropriately. Clean dressings were applied and a stat chest x-ray confirmed placement with no immediate complications. Dictated by... Eduard Velarde M.D. EA/myranda TD: 11/09/2016 09:42 JOB #: [id number] Unit #: [id number] #: [id number] Patient: KAYDEN ADAME PROCEDURE OPERATIVE NOTE Page 1 of 1 X EDUARD ROPER MD X PROCEDURE OPERATIVE NOTE
--- NOTE | ~2016-11-06 | CT71 ---
[facility] A Service of [facility] & [facility] RADIOLOGY TEXT RESULTS PATIENT: KAYDEN ADAME LOCATION: [address] : 50 UNIT #: [id number] AGE: [address]: Harleen Winkler MD SEX: M ORDER DR: [id number] [facility] [address] [place], [place] [address] [id number] MR#: [id number] #: [id number] NAME: KAYDEN ADAME : 1950 SEX: M STUDY DATE/TIME: 11/06/2016 17:39 UNIT: [facility] ROOM: [facility] STUDY DESCRIPTION: CT Head Wo Contrast Attending Physician: Harleen Winkler M.D. Ordering Physician: Harleen Winkler M.D. Primary Care Physician: No Primary Care Physician MEDICAL IMAGING REPORT This report is preliminary unless electronic signature is present EXAM Head CT. HISTORY Full arrest today, 11/06/2016, on a ventilator, unresponsive. No additional history can be obtained at this time. COMMENT Routine noncontrasted head CT is reviewed. This CT exam was performed with one or more of the following radiation dose reduction techniques: automatic exposure control, adjustment of mA and/or kV according to patient size, and iterative reconstruction. COMPARISON There is no previous. FINDINGS The miller-white distinction is poor, and I believe there is some in general cerebral swelling diffusely with relatively smaller sulci than expected for age group. These findings together are worrisome for at least cerebral edema if not lillian global hypoxic ischemic insult. The diagnosis is best made with MRI if the patient is a candidate. There is some patchy low attenuation suspected at the basal ganglia bilaterally superiorly. No acute intracranial hemorrhage or extraaxial fluid collection is suspected. There is no hydrocephalus or midline shift. At this time, the basilar cisterns are patent. There is no displaced calvarial fracture. The mastoid air cells are clear. There is an air-fluid level in the right maxillary sinus and there is partial opacification of the ethmoid air cells. IMPRESSION 1. Findings are concerning for at least cerebral edema, if not global [facility] A Service of [facility] & [facility] RADIOLOGY TEXT RESULTS PATIENT: KAYDEN ADAME LOCATION: [facility]3-13 : 50 UNIT #: [id number] AGE: [address]: Harleen Winkler MD SEX: M ORDER DR: hypoxic ischemic insult. I am concerned that there is abnormal loss of the miller-white junction and abnormal loss of sulci for age group. There is no midline shift or downward herniation and there is no gross acute intracranial hemorrhage. There may be some low attenuation at the superior basal ganglia bilaterally also. 2. The possible diagnosis of global hypoxic ischemic insult is best pursued with an MRI if the patient is a candidate. At minimal follow up head CT is recommended. Please correlate clinically as well. 3. There is an air fluid level in the right maxillary sinus. STAT * RESULT Dictated by... Fabiola Solomon M.D. THIS IS AN ELECTRONICALLY VERIFIED REPORT Fabiola Solomon M.D. at 11/06/2016 7:07 PM SHANNAN/anthony TD: 11/06/2016 18:04 JOB #: [id number] MEDICAL IMAGING REPORT Page 1 of 1 COPY
[2016-11-06 12:17] LABS: ARTERIAL BLD GAS O2 SATURATION 71.3 % (90.0-100.0); ARTERIAL BLOOD GAS CARBOXY HB 5.7 %sat (0.0-9.0); ARTERIAL BLOOD GAS HCO3 19.6 mmol/L; ARTERIAL BLOOD GAS MET HB 0.7 %sat (0.0-2.0)
[2016-11-06 12:19] LABS: ARTERIAL BLOOD GAS ALLEN TEST N; ARTERIAL BLOOD GAS PCO2 73.1 mmHg (35.0-45.0); ARTERIAL BLOOD GAS PO2 57.8 mmHg (80.0-100); ARTERIAL BLOOD GAS pH 7.036 (7.350-7.450); ARTERIAL DRAW? YES
[2016-11-06 12:20] LABS: ARTERIAL BLOOD GAS ART SITE RIGHT RADIAL; ARTERIAL BLOOD GAS DELIVERY NON REBREATHER MASK
[2016-11-06 12:27] LABS: POC - CKMB 3.2 ng/mL (0.0-7.9); POC - TROPONIN <0.05 ng/mL (<=0.05)
[2016-11-06 12:54] LABS: BASOPHIL% 0.4 % (0-2.5); EOSINOPHIL# 0.2 X10e3 (0-0.7); EOSINOPHIL% 2.1 % (0.0-7.0); HEMATOCRIT 33.7 % (38.0-50.0); HEMOGLOBIN 10.7 gm/dL (13.0-16.0); LYMPHOCYTE# 3.7 X10e3 (1.0-3.5); LYMPHOCYTE% 50.9 % (17.0-45.0); MEAN CELL VOLUME 91.5 FL (83-96); MEAN CORPUSCULAR HEMOGLOBIN 29.1 PG (28-34); MEAN CORPUSCULAR HGB CONC 31.8 g/dL (30-36); MEAN PLATELET VOLUME 9.1 FL (6.5-11.5); MONOCYTE# 0.2 X10e3 (0-1.0); MONOCYTE% 2.8 % (3.0-12.0); NEUTROPHIL# 3.2 X10e3 (1.5-7.1); NEUTROPHIL% 43.8 % (40-75); PLATELET COUNT 144 X10e3 (140-420); RED BLOOD COUNT 3.68 X10e (3.90-5.60); RED CELL DISTRIBUTION WIDTH 13.5 % (11.0-15.5); WHITE BLOOD COUNT 7.3 X10e3 (4.0-10.5)
[2016-11-06 12:58] LABS: DIFF IND YES
[2016-11-06 13:03] LABS: INR 1.2; PARTIAL THROMBOPLASTIN TIME 30.9 SECONDS (23.5-31.3); PROTHROMBIN TIME (PATIENT) 13.4 SECONDS (10.0-11.7)
[2016-11-06 13:13] LABS: SMUDGE CELLS 18 /100
[2016-11-06 13:14] LABS: ANISOCYTOSIS SL; MICROCYTOSIS SL
[2016-11-06 13:16] LABS: PLATELET ESTIMATE NORMAL (NORMAL)
[2016-11-06 13:21] LABS: ALBUMIN SERUM 2.8 g/dL (3.5-5.0); BILIRUBIN, DIRECT 0.2 mg/dL (0.0-0.2); BILIRUBIN,INDIRECT 0.1 mg/dL (0.0-0.9); BILIRUBIN,TOTAL 0.3 mg/dL (0.2-2.0); BUN/CREATININE RATIO 9.41; CALCIUM SERUM 7.3 mg/dL (8.4-10.2); CREATININE SERUM 1.7 mg/dL (0.6-1.4); GLOM FILT RATE Estimated 47.7 mL/min (>60); POTASSIUM 3.4 mmol/L (3.5-5.1); PROTEIN TOTAL SERUM 4.8 g/dL (6.0-8.3)
[2016-11-06 13:39] LABS: %MB 3.9 % (0.0-4.0); MB 17.1 ng/ml
[2016-11-06 15:50] LABS: ARTERIAL BLD GAS O2 SATURATION 98.1 % (90.0-100.0); ARTERIAL BLOOD GAS CARBOXY HB 1.2 %sat (0.0-9.0); ARTERIAL BLOOD GAS HCO3 25.6 mmol/L; ARTERIAL BLOOD GAS MET HB 0.8 %sat (0.0-2.0); ARTERIAL BLOOD GAS PCO2 46.4 mmHg (35.0-45.0); ARTERIAL BLOOD GAS pH 7.349 (7.350-7.450)
[2016-11-06 15:51] LABS: ARTERIAL BLOOD GAS ALLEN TEST NORMAL; ARTERIAL BLOOD GAS ART SITE LEFT RADIAL; ARTERIAL BLOOD GAS DELIVERY VENT; ARTERIAL BLOOD GAS VENT MODE AC; ARTERIAL DRAW? YES
[2016-11-06 16:36] LABS: URINE SOURCE CLEAN CATCH
[2016-11-06 16:51] LABS: URINE APPEARANCE CLOUDY; URINE BILIRUBIN NEG (NEG); URINE BLOOD 4+ (NEG); URINE COLOR RED; URINE GLUCOSE 50 MG/DL (NORM); URINE KETONE 1+ (NEG); URINE LEUKOCYTE ESTERASE NEG (NEG); URINE NITRATE NEG (NEG); URINE PROTEIN 3+ (NEG); URINE UROBILINOGEN NORM (NORM)
[2016-11-06 16:54] LABS: CULTURE INDICATED? YES; URBCS1 AUWI INNUM /[HPF] (0-2); URINE BACTERIA AUWI 1+ (NEGATIVE); URINE SQUAMOUS EPITHELIAL CELL FEW /[HPF]
[2016-11-06 17:31] LABS: MAGNESIUM 1.8 mg/dL (1.6-3.0)
[2016-11-06 17:41] LABS: AMPHETAMINE NEG (NEG); BARBITURATES NEG (NEG); BENZODIAZEPINES NEG (NEG); COCAINE POS (NEG); MARIJUANA NEG (NEG); OPIATES NEG (NEG); TRICYCLIC ANTIDEPRESSANTS NEG (NEG); U METHADONE NEG (NEG)
[2016-11-06 17:42] LABS: CHOLESTEROL 92 mg/dL (0-200); HDL CHOLESTEROL 48 mg/dL (29-75); LDL CHOLESTEROL 40 mg/dL (-130); LDL/HDL RATIO 1 RATIO (0-4); TRIGLYCERIDES 21 mg/dL (10-160)
[2016-11-07 03:39] LABS: ARTERIAL BLD GAS O2 SATURATION 94.7 % (90.0-100.0); ARTERIAL BLOOD GAS CARBOXY HB 0.5 %sat (0.0-9.0); ARTERIAL BLOOD GAS HCO3 18.6 mmol/L; ARTERIAL BLOOD GAS PCO2 35.1 mmHg (35.0-45.0); ARTERIAL BLOOD GAS pH 7.332 (7.350-7.450)
[2016-11-07 03:41] LABS: ARTERIAL BLOOD GAS ART SITE RIGHT BRACHIAL; ARTERIAL BLOOD GAS DELIVERY VENT; ARTERIAL BLOOD GAS VENT MODE AC; ARTERIAL DRAW? YES
[2016-11-07 05:48] LABS: BASOPHIL% 0.1 % (0-2.5); HEMATOCRIT 38.6 % (38.0-50.0); HEMOGLOBIN 12.2 gm/dL (13.0-16.0); LYMPHOCYTE# 0.6 X10e3 (1.0-3.5); LYMPHOCYTE% 3.4 % (17.0-45.0); MEAN CELL VOLUME 90.2 FL (83-96); MEAN CORPUSCULAR HEMOGLOBIN 28.6 PG (28-34); MEAN CORPUSCULAR HGB CONC 31.7 g/dL (30-36); MEAN PLATELET VOLUME 9.1 FL (6.5-11.5); MONOCYTE# 0.8 X10e3 (0-1.0); MONOCYTE% 4.6 % (3.0-12.0); NEUTROPHIL% 91.9 % (40-75); PLATELET COUNT 198 X10e3 (140-420); RED BLOOD COUNT 4.28 X10e (3.90-5.60)
[2016-11-07 05:49] LABS: DIFF IND YES; WHITE BLOOD COUNT 17.4 X10e3 (4.0-10.5)
[2016-11-07 06:06] LABS: INR 1.2; PROTHROMBIN TIME (PATIENT) 13.2 SECONDS (10.0-11.7)
[2016-11-07 06:14] LABS: ANISOCYTOSIS SL; PLATELET ESTIMATE NORMAL (NORMAL)
[2016-11-07 06:50] LABS: ALBUMIN SERUM 3.1 g/dL (3.5-5.0); BILIRUBIN,TOTAL 0.5 mg/dL (0.2-2.0); BUN/CREATININE RATIO 8.66; CALCIUM SERUM 6.9 mg/dL (8.4-10.2); MAGNESIUM 1.7 mg/dL (1.6-3.0); POTASSIUM 4.4 mmol/L (3.5-5.1); PROTEIN TOTAL SERUM 5.5 g/dL (6.0-8.3)
[2016-11-07 15:44] LABS: BUN/CREATININE RATIO 8.09; CALCIUM SERUM 6.4 mg/dL (8.4-10.2); CREATININE SERUM 4.2 mg/dL (0.6-1.4); POTASSIUM 4.8 mmol/L (3.5-5.1)
[2016-11-08 03:51] LABS: ARTERIAL BLD GAS O2 SATURATION 97.4 % (90.0-100.0); ARTERIAL BLOOD GAS CARBOXY HB 0.3 %sat (0.0-9.0); ARTERIAL BLOOD GAS HCO3 29.4 mmol/L; ARTERIAL BLOOD GAS MET HB 1.2 %sat (0.0-2.0); ARTERIAL BLOOD GAS pH 7.346 (7.350-7.450)
[2016-11-08 03:52] LABS: ARTERIAL BLOOD GAS ALLEN TEST NORMAL; ARTERIAL BLOOD GAS ART SITE RIGHT RADIAL; ARTERIAL BLOOD GAS DELIVERY VENT; ARTERIAL BLOOD GAS PCO2 53.9 mmHg (35.0-45.0); ARTERIAL DRAW? YES
[2016-11-08 03:53] LABS: ARTERIAL BLOOD GAS VENT MODE AC
[2016-11-08 05:49] LABS: BASOPHIL% 0.1 % (0-2.5); HEMATOCRIT 35.5 % (38.0-50.0); HEMOGLOBIN 11.5 gm/dL (13.0-16.0); LYMPHOCYTE# 0.8 X10e3 (1.0-3.5); LYMPHOCYTE% 5.3 % (17.0-45.0); MEAN CELL VOLUME 88.7 FL (83-96); MEAN CORPUSCULAR HEMOGLOBIN 28.7 PG (28-34); MEAN CORPUSCULAR HGB CONC 32.3 g/dL (30-36); MEAN PLATELET VOLUME 9.6 FL (6.5-11.5); MONOCYTE# 0.8 X10e3 (0-1.0); MONOCYTE% 5.1 % (3.0-12.0); NEUTROPHIL# 13.6 X10e3 (1.5-7.1); NEUTROPHIL% 89.5 % (40-75); PLATELET COUNT 155 X10e3 (140-420); RED CELL DISTRIBUTION WIDTH 13.9 % (11.0-15.5); WHITE BLOOD COUNT 15.2 X10e3 (4.0-10.5)
[2016-11-08 06:00] LABS: DIFF IND NO
[2016-11-08 06:55] LABS: ALBUMIN SERUM 2.9 g/dL (3.5-5.0); BILIRUBIN,TOTAL 0.4 mg/dL (0.2-2.0); BUN/CREATININE RATIO 8.11; CALCIUM SERUM 6.5 mg/dL (8.4-10.2); CREATININE SERUM 5.3 mg/dL (0.6-1.4); GLOM FILT RATE Estimated 12.1 mL/min (>60); MAGNESIUM 1.5 mg/dL (1.6-3.0); POTASSIUM 4.7 mmol/L (3.5-5.1); PROTEIN TOTAL SERUM 5.3 g/dL (6.0-8.3)
[2016-11-09 04:08] LABS: ARTERIAL BLD GAS O2 SATURATION 97.9 % (90.0-100.0); ARTERIAL BLOOD GAS CARBOXY HB 0.5 %sat (0.0-9.0); ARTERIAL BLOOD GAS HCO3 32.4 mmol/L; ARTERIAL BLOOD GAS MET HB 1.1 %sat (0.0-2.0); ARTERIAL BLOOD GAS pH 7.362 (7.350-7.450)
[2016-11-09 04:18] LABS: ARTERIAL BLOOD GAS ALLEN TEST NORMAL; ARTERIAL BLOOD GAS PCO2 57.1 mmHg (35.0-45.0); ARTERIAL DRAW? YES
[2016-11-09 04:19] LABS: ARTERIAL BLOOD GAS ART SITE RIGHT RADIAL; ARTERIAL BLOOD GAS VENT MODE AC
[2016-11-09 05:18] LABS: BASOPHIL% 0.3 % (0-2.5); EOSINOPHIL# 0.2 X10e3 (0-0.7); EOSINOPHIL% 1.9 % (0.0-7.0); HEMATOCRIT 31.8 % (38.0-50.0); HEMOGLOBIN 10.2 gm/dL (13.0-16.0); LYMPHOCYTE# 0.8 X10e3 (1.0-3.5); LYMPHOCYTE% 7.8 % (17.0-45.0); MEAN CELL VOLUME 89.9 FL (83-96); MEAN CORPUSCULAR HEMOGLOBIN 28.9 PG (28-34); MEAN CORPUSCULAR HGB CONC 32.2 g/dL (30-36); MEAN PLATELET VOLUME 9.8 FL (6.5-11.5); MONOCYTE# 0.4 X10e3 (0-1.0); MONOCYTE% 3.6 % (3.0-12.0); NEUTROPHIL# 9.2 X10e3 (1.5-7.1); NEUTROPHIL% 86.4 % (40-75); RED BLOOD COUNT 3.53 X10e (3.90-5.60); WHITE BLOOD COUNT 10.6 X10e3 (4.0-10.5)
[2016-11-09 06:12] LABS: PLATELET COUNT 97 X10e3 (140-420)
[2016-11-09 06:13] LABS: DIFF IND YES
[2016-11-09 06:18] LABS: PLATELET ESTIMATE DECREASED (NORMAL)
[2016-11-09 06:19] LABS: ANISOCYTOSIS SL; SCHISTOCYTES PRESENT
[2016-11-09 07:18] LABS: ALBUMIN SERUM 2.1 g/dL (3.5-5.0); BILIRUBIN,TOTAL 0.5 mg/dL (0.2-2.0); BUN/CREATININE RATIO 6.73; CALCIUM SERUM 6.5 mg/dL (8.4-10.2); CREATININE SERUM 4.9 mg/dL (0.6-1.4); GLOM FILT RATE Estimated 13.2 mL/min (>60); MAGNESIUM 1.6 mg/dL (1.6-3.0); PROTEIN TOTAL SERUM 3.9 g/dL (6.0-8.3)
[2016-11-12 14:39] LABS: HEPATITIS B SURFACE ANTIBODY <5 mIU/mL (>=10)
== END 2016-11-09 16:35 | disposition expired | DRG 917 ==
LOC: CED 11:46 → CICCU3 14:06 → CED 14:06 → CEDOF 14:06 → CICCU2 15:10 → CICCU3 15:29 → CEDOF 15:29 → CICCU2 20:17 → CICCU3 20:17 → CICCU2 11-07 06:46
PROVIDERS: Emergency Medicine; Family Medicine; Internal Medicine; Internal Medicine Cardiovascular Disease; Internal Medicine Nephrology; Nurse Practitioner
PROC: 0BH17EZ Insertion of Endotracheal Airway into Trachea, Via Natural or Artificial Opening (ICD-10-PCS; principal; 2016-11-06)
PROC: 5A1945Z Respiratory Ventilation, 24-96 Consecutive Hours (ICD-10-PCS; 2016-11-06)
PROC: 05HN33Z Insertion of Infusion Device into Left Internal Jugular Vein, Percutaneous Approach (ICD-10-PCS; 2016-11-06)
PROC: B544ZZA Ultrasonography of Left Jugular Veins, Guidance (ICD-10-PCS; 2016-11-06)
PROC: B24BZZZ Ultrasonography of Heart with Aorta (ICD-10-PCS; 2016-11-06)
PROC: 05H633Z Insertion of Infusion Device into Left Subclavian Vein, Percutaneous Approach (ICD-10-PCS; 2016-11-08)
PROC: 5A1D00Z (ICD-10-PCS; 2016-11-08)
DX: T40.5X1A Poisoning by cocaine, accidental (unintentional), initial encounter (principal); A41.9 Sepsis, unspecified organism; I21.09 ST elevation (STEMI) myocardial infarction involving other coronary artery of anterior wall; K72.00 Acute and subacute hepatic failure without coma; R57.0 Cardiogenic shock; J96.01 Acute respiratory failure with hypoxia; J96.02 Acute respiratory failure with hypercapnia; E43 Unspecified severe protein-calorie malnutrition; G93.1 Anoxic brain damage, not elsewhere classified; J18.9 Pneumonia, unspecified organism; N17.9 Acute kidney failure, unspecified; N39.0 Urinary tract infection, site not specified; E87.2 Acidosis; M62.82 Rhabdomyolysis; Y92.009 Unspecified place in unspecified non-institutional (private) residence as the place of occurrence of the external cause; E87.6 Hypokalemia; D64.9 Anemia, unspecified; J44.9 Chronic obstructive pulmonary disease, unspecified; F17.200 Nicotine dependence, unspecified, uncomplicated; E83.39 Other disorders of phosphorus metabolism; Z68.24 Body mass index [BMI] 24.0-24.9, adult; K76.9 Liver disease, unspecified; Z85.46 Personal history of malignant neoplasm of prostate; Z82.49 Family history of ischemic heart disease and other diseases of the circulatory system; Z88.5 Allergy status to narcotic agent; F14.10 Cocaine abuse, uncomplicated; R31.9 Hematuria, unspecified
CPT/HCPCS: 36600; 70450; 71010; 76770; 80048; 80053; 80061; 80076; 80307; 81003; 82330; 82550; 82553; 82803; 82947; 83605; 83735; 84100; 84443; 84484; 85025; 85610; 85730; 86705; 86706; 86707; 86850; 86900; 86901; 87040; 87070; 87086; 87205; 87340; 87350; 92950; 93005; 93306; 94002; 94003; 94640; 94760; 94761; 96374; 96375; 99291; 99292; C1750; C1769; C1887; C1894; C9113; J0282; J0610; J1644; J1650; J2250; J2270; J2543; J3010; J3475; J7060